=== PATIENT | male | born 1950 | race Two or more races ===

== ENCOUNTER 2024-04-05 13:15 | Observation (INO) | payer OTHER ==
[2024-04-05 13:20] VITALS: RESP 16; BMI 31.0
[2024-04-05 14:25] LABS: BASO % 0.5 % (0-2.0); EOS % 0.4 % (0-4.5); HEMATOCRIT 49.2 % (35.4-49); HEMOGLOBIN 16.4 GM/dL (11.7-16.9); LYMPH % 22.4 % (8-40); MCH 27.3 pg (25.7-33.7); MCHC 33.3 g/dl (32.0-35.9); MEAN CELL VOLUME 81.9 fl (80-96); MONO % 6.7 % (3.8-10.2); PLATELET COUNT 218 10^3/uL (134-434); RBC 6.01 M/mm3 (4.00-5.60); RDW 15.7 % (11.9-15.9); WHITE BLOOD COUNT 9.2 K/mm3 (4.0-10.0)
[2024-04-05 14:45] LABS: POTASSIUM 3.5 mmol/L (3.5-5.1)
[2024-04-05 14:46] LABS: CALCIUM 8.9 mg/dL (8.5-10.1)
[2024-04-05 14:47] LABS: ALBUMIN 3.4 g/dl (3.4-5.0); BLOOD UREA NITROGEN 19.8 mg/dL (7-18)
[2024-04-05 14:50] LABS: CREATININE 1.2 mg/dL (0.55-1.3)
[2024-04-05 14:52] LABS: BILIRUBIN,TOTAL 0.9 mg/dL (0.2-1); TOT PROT 6.5 g/dl (6.4-8.2)
[2024-04-05 15:41] LABS: HIV INTERPRETATION NEGATIVE (NEGATIVE)
[2024-04-05 19:17] VITALS: BP 103/62; PULSE 72; TEMP 98.5
[2024-04-05] MEDS ORDERED: ATORVASTATIN CA 20 MG TABLET (FP) PO SCH (22:00)
[2024-04-05] MEDS ORDERED: INSULIN ASPART SLIDING SCALE (NOVOLOG) 1 VIAL SQ SCH (22:00)
[2024-04-06] MEDS ORDERED: metFORMIN HCL 500 MG TABLET (FP) PO SCH (07:00)
[2024-04-06] MEDS ORDERED: ASPIRIN 81 MG CHEWABLE TABLETS PO SCH (10:00)
[2024-04-06] MEDS ORDERED: LOSARTAN POTASSIUM 50 MG TABLET PO SCH (10:00)
== END 2024-04-05 21:49 | disposition home or self-care (01) ==
LOC: JER 13:15 → JERBED 15:00
PROVIDERS: ADMIT Internal Medicine; ATTEND Internal Medicine
DX: R07.9 Chest pain, unspecified (principal); R06.02 Shortness of breath; I10 Essential (primary) hypertension; E11.9 Type 2 diabetes mellitus without complications; E78.5 Hyperlipidemia, unspecified; Z53.9 Procedure and treatment not carried out, unspecified reason
CPT/HCPCS: 36415; 71046-TC-FY; 80053; 84484; 85025; 86803; 87389; 93005; 93010; 99285-25; G0378

== ENCOUNTER 2024-07-27 18:24 | Observation (INO) | payer OTHER ==
[2024-07-27 18:31] VITALS: BMI 32.0
[2024-07-27] MEDS ORDERED: ACETAMINOPHEN INJECTION 100 ML ONE (19:33)
[2024-07-27] MEDS: ACETAMINOPHEN 1000 MG/100 ML BAG IVPB ONE (19:45)
[2024-07-27 19:57] LABS: BASO % 0.9 % (0-2.0); HEMATOCRIT 49.8 % (35.4-49); HEMOGLOBIN 16.4 GM/dL (11.7-16.9); LYMPH % 26.9 % (8-40); MCH 27.2 pg (25.7-33.7); MCHC 32.9 g/dl (32.0-35.9); MEAN CELL VOLUME 82.6 fl (80-96); MEAN PLT VOLUME 9.1 fl (7.5-11.1); MONO % 8.1 % (3.8-10.2); NEUT % 63.1 % (42.8-82.8); PLATELET COUNT 226 10^3/uL (134-434); RBC 6.03 M/mm3 (4.00-5.60); RDW 14.2 % (11.9-15.9); WHITE BLOOD COUNT 8.5 K/mm3 (4.0-10.0)
[2024-07-27 19:58] LABS: INR 0.88 (0.83-1.09); PROTHROMBIN TIME (PATIENT) 9.6 SEC (9.7-13.0)
[2024-07-27 20:01] LABS: ACTIVATED PTT 27.8 SECONDS (25.2-36.5)
[2024-07-27 20:09] LABS: POTASSIUM 3.5 mmol/L (3.5-5.1)
[2024-07-27 20:12] LABS: ALBUMIN 3.2 g/dl (3.4-5.0); BLOOD UREA NITROGEN 19.3 mg/dL (7-18); CALCIUM 8.7 mg/dL (8.5-10.1); MAGNESIUM 2.1 mg/dL (1.8-2.4)
[2024-07-27 20:15] LABS: CREATININE 1.6 mg/dL (0.55-1.3)
[2024-07-27 20:16] LABS: PHOSPHOROUS 4.1 mg/dL (2.5-4.9)
[2024-07-27 20:17] LABS: BILIRUBIN,TOTAL 0.4 mg/dL (0.2-1); TOT PROT 6.4 g/dl (6.4-8.2)
[2024-07-27 20:20] LABS: N-TERMINAL BNP 500.7 pg/ml (5-125)
[2024-07-27] MEDS: LACTATED RINGERS SOLUTION 1000 ML INFUS.BAG IV ONE (20:28)
[2024-07-27] MEDS ORDERED: ENOXAPARIN NA (PORCINE) 40 MG/0.4 ML DISP.SYRIN SQ ONE (22:31)
[2024-07-27] MEDS: POTASSIUM CHLORIDE TABS 20 MEQ TABLET.ER (FP) PO ONE (22:35)
[2024-07-27] MEDS: INSULIN ASPART SLIDING SCALE (NOVOLOG) 1 VIAL SQ SCH (22:36)
[2024-07-27] MEDS: ENOXAPARIN NA (PORCINE) 40 MG/0.4 ML DISP.SYRIN SQ SCH (22:36)
[2024-07-28] MEDS: SODIUM CHLORIDE 1,000 ML IV SCH (01:10)
[2024-07-28 08:08] LABS: HEMATOCRIT 46.3 % (35.4-49); HEMOGLOBIN 15.4 GM/dL (11.7-16.9); MCH 27.3 pg (25.7-33.7); MCHC 33.3 g/dl (32.0-35.9); MEAN CELL VOLUME 82.1 fl (80-96); PLATELET COUNT 208 10^3/uL (134-434); RBC 5.64 M/mm3 (4.00-5.60); RDW 14.2 % (11.9-15.9); WHITE BLOOD COUNT 5.2 K/mm3 (4.0-10.0)
[2024-07-28 08:26] LABS: POTASSIUM 4.2 mmol/L (3.5-5.1)
[2024-07-28 08:29] LABS: BLOOD UREA NITROGEN 17.4 mg/dL (7-18); CALCIUM 9.1 mg/dL (8.5-10.1); MAGNESIUM 2.1 mg/dL (1.8-2.4)
[2024-07-28 08:32] LABS: CREATININE 1.2 mg/dL (0.55-1.3)
[2024-07-28 08:33] LABS: PHOSPHOROUS 4.2 mg/dL (2.5-4.9)
[2024-07-28 10:50] VITALS: RESP 18
[2024-07-28 14:23] VITALS: BP 115/73; PULSE 63; TEMP 98.2
== END 2024-07-28 14:32 | disposition home or self-care (01) ==
LOC: JER 18:24 → JERBED 20:24 → J4S 07-28 00:24
PROVIDERS: ADMIT Internal Medicine; ATTEND Family Medicine
PROC: 3E033NZ Introduction of Analgesics, Hypnotics, Sedatives into Peripheral Vein, Percutaneous Approach (ICD-10-PCS; principal; 2024-07-27)
PROC: 3E0337Z Introduction of Electrolytic and Water Balance Substance into Peripheral Vein, Percutaneous Approach (ICD-10-PCS; 2024-07-27)
DX: N17.9 Acute kidney failure, unspecified (principal); E78.5 Hyperlipidemia, unspecified; I10 Essential (primary) hypertension; E11.9 Type 2 diabetes mellitus without complications; R07.9 Chest pain, unspecified; G89.29 Other chronic pain
CPT/HCPCS: 0241U-QW; 36415; 71045-TC-FY; 80048; 80053; 82550; 82962; 83036; 83735; 83880; 84100; 84484; 85025; 85027; 85610; 85730; 93005; 93010; 96361; 96374; 99285-25; G0378; J0131

== ENCOUNTER 2024-12-24 10:23 | Emergency (ER) | payer OTHER ==
[2024-12-24 10:49] VITALS: BP 122/77; PULSE 74; RESP 18; TEMP 97.9; BMI 32.5
[2024-12-24] MEDS ORDERED: ACETAMINOPHEN 500 MG TABLET (FP) ONE (12:14)
[2024-12-24] MEDS: ACETAMINOPHEN 500 MG TABLET (FP) PO ONE (12:15)
== END 2024-12-24 13:24 | disposition home or self-care (01) ==
LOC: JERFT 10:23
DX: M25.552 Pain in left hip (principal); M25.561 Pain in right knee; G89.18 Other acute postprocedural pain
CPT/HCPCS: 73502-TC-LT-FY; 73560-TC-RT-FY; 99284-25

== ENCOUNTER 2025-02-18 18:39 | Observation (INO) | payer OTHER ==
[2025-02-18 18:49] VITALS: BMI 32.9
[2025-02-18] MEDS ORDERED: ACETAMINOPHEN INJECTION 100 ML ONE (19:38)
[2025-02-18] MEDS: LACTATED RINGERS SOLUTION 1000 ML INFUS.BAG IV ONE (19:55)
[2025-02-18] MEDS: ACETAMINOPHEN 1000 MG/100 ML BAG IVPB ONE (19:55)
[2025-02-18 20:13] LABS: ABSOLUTE IMMATURE GRANULOCYTES 0.03 x10^3/uL (0.0-0.031); BASOPHILS # 0.04 x10^3/uL (0.01-0.08); EOSINOPHIL % 1.3 % (0.8-7.0); EOSINOPHILS # 0.10 x10^3/uL (0.04-0.54); MCHC 32.6 g/dl (32.3-36.5); MEAN CELL VOLUME 81.8 fl (79.0-92.2); MEAN PLT VOLUME 11.6 fl (9.4-12.4); MONOCYTE # 0.76 x10^3/uL (0.30-0.82); MONOCYTE % 9.8 % (5.3-12.2); RDW 13.4 % (12.2-16.6)
[2025-02-18 20:32] LABS: GLUCOSE,RANDOM 364.0 mg/dL (74-106); TOT PROT 6.7 g/dl (6.4-8.2)
[2025-02-18 20:33] LABS: CO2 23.0 mmol/L (21-32)
[2025-02-18 20:35] LABS: ALK PHOS 129.0 U/L (40-150)
[2025-02-18 20:37] LABS: SGPT/ALT 23.0 U/L (0-55)
[2025-02-18 20:38] LABS: CREATININE 1.29 mg/dL (0.55-1.3); SGOT/AST 20.0 U/L (5-34)
[2025-02-18 21:01] LABS: HCV DIAGNOSTIC IN-HOUSE W/RFLX NON-REACTIVE (NONREACTIVE); HIV INTERPRETATION NEGATIVE (NEGATIVE)
[2025-02-18] MEDS ORDERED: METOCLOPRAMIDE HCL INJECTION 10 MG/2 ML VIAL ONE (21:58)
[2025-02-18 22:58] LABS: N-TERMINAL BNP 105.7 pg/ml (5-125)
[2025-02-18] MEDS ORDERED: ALBUTEROL SO4 HFA INHALER IH PRN (23:25)
[2025-02-19] MEDS: INSULIN (NOVOLOG) ASPART 100 UNITS/ML 10ML VIAL SQ ONE (02:05)
[2025-02-19] MEDS ORDERED: ACETAMINOPHEN 325 MG TABLET (FP) PO PRN (05:21)
[2025-02-19] MEDS: INSULIN ASPART SLIDING SCALE (NOVOLOG) 1 VIAL SQ SCH (06:01)
[2025-02-19 06:41] LABS: ABSOLUTE IMMATURE GRANULOCYTES 0.03 x10^3/uL (0.0-0.031); BASOPHILS # 0.06 x10^3/uL (0.01-0.08); EOSINOPHIL % 2.1 % (0.8-7.0); EOSINOPHILS # 0.14 x10^3/uL (0.04-0.54); MCHC 32.2 g/dl (32.3-36.5); MEAN CELL VOLUME 82.5 fl (79.0-92.2); MEAN PLT VOLUME 11.1 fl (9.4-12.4); MONOCYTE # 0.63 x10^3/uL (0.30-0.82); MONOCYTE % 9.4 % (5.3-12.2); RDW 13.5 % (12.2-16.6)
[2025-02-19 07:10] LABS: GLUCOSE,RANDOM 71.0 mg/dL (74-106)
[2025-02-19 07:11] LABS: TOT PROT 6.1 g/dl (6.4-8.2)
[2025-02-19 07:12] LABS: CO2 30.0 mmol/L (21-32)
[2025-02-19 07:14] LABS: ALK PHOS 103.0 U/L (40-150)
[2025-02-19 07:16] LABS: SGOT/AST 16.0 U/L (5-34); SGPT/ALT 18.0 U/L (0-55)
[2025-02-19 07:17] LABS: CREATININE 1.21 mg/dL (0.55-1.3)
[2025-02-19] MEDS: ENOXAPARIN NA (PORCINE) 40 MG/0.4 ML DISP.SYRIN SQ SCH (10:22)
[2025-02-19] MEDS: TAMSULOSIN HCL 0.4 MG CAP PO SCH (10:22)
[2025-02-19] MEDS: LOSARTAN 50MG/HCTZ 12.5MG 1 TAB PO SCH (12:00)
[2025-02-19] MEDS: FINASTERIDE 5 MG TABLET (FP) PO SCH (12:45)
[2025-02-19] MEDS: EMPAGLIFLOZIN (JARDIANCE) 25 MG TABLET PO SCH (12:45)
[2025-02-19] MEDS: FLUTICASONE/UMECLIDIN/VILANTER(200-62.5-25 TRELEGY ELLIPTA) INAHLER IH SCH (12:45)
[2025-02-19 15:22] LABS: URINE APPEARANCE CLEAR; URINE BILIRUBIN NEGATIVE (NEGATIVE); URINE COLOR YELLOW; URINE GLUCOSE (UA) 3+ (NEGATIVE); URINE KETONE TRACE (NEGATIVE); URINE LEUK ESTERASE NEGATIVE (NEGATIVE); URINE NITRITE NEGATIVE (NEGATIVE); URINE PROTEIN NEGATIVE (NEGATIVE); URINE UROBILINOGEN 2.0 mg/dL (0.2-1.0)
[2025-02-19] MEDS: ATORVASTATIN CA 40 MG TABLET (FP) PO SCH (21:06)
[2025-02-19] MEDS: INSULIN GLARGINE (LANTUS) 100 UNITS/ML UNITS SQ SCH (21:06)
[2025-02-20 04:04] VITALS: RESP 25
[2025-02-20 06:17] VITALS: TEMP 98.2
[2025-02-20 07:00] LABS: ABSOLUTE IMMATURE GRANULOCYTES 0.03 x10^3/uL (0.0-0.031); BASOPHILS # 0.06 x10^3/uL (0.01-0.08); EOSINOPHIL % 1.9 % (0.8-7.0); EOSINOPHILS # 0.13 x10^3/uL (0.04-0.54); MCHC 32.2 g/dl (32.3-36.5); MEAN CELL VOLUME 83.0 fl (79.0-92.2); MEAN PLT VOLUME 11.4 fl (9.4-12.4); MONOCYTE # 0.61 x10^3/uL (0.30-0.82); MONOCYTE % 9.1 % (5.3-12.2); RDW 13.5 % (12.2-16.6)
[2025-02-20 07:24] LABS: GLUCOSE,RANDOM 117.0 mg/dL (74-106)
[2025-02-20 07:25] LABS: TOT PROT 6.5 g/dl (6.4-8.2)
[2025-02-20 07:26] LABS: CO2 30.0 mmol/L (21-32)
[2025-02-20 07:28] LABS: ALK PHOS 105.0 U/L (40-150)
[2025-02-20 07:30] LABS: CREATININE 1.09 mg/dL (0.55-1.3); SGOT/AST 16.0 U/L (5-34); SGPT/ALT 17.0 U/L (0-55)
[2025-02-20 12:03] VITALS: BP 143/74; PULSE 66
== END 2025-02-20 12:40 | disposition home or self-care (01) ==
LOC: JER 18:39 → JERBED 19:24 → INTOOBSV 19:24 → UNDOADMOB 19:24 → JERBED 23:23 → J2W 23:34 → JERBED 23:34 → INTOOBSV 02-19 01:28 → OBSVTOIN 02-19 01:28 → J2W 02-19 13:27 → JERBED 02-19 13:27
PROVIDERS: ADMIT Family Medicine; ATTEND Family Medicine
PROC: 3E033NZ Introduction of Analgesics, Hypnotics, Sedatives into Peripheral Vein, Percutaneous Approach (ICD-10-PCS; principal; 2025-02-19)
PROC: 3E013VG Introduction of Insulin into Subcutaneous Tissue, Percutaneous Approach (ICD-10-PCS; 2025-02-19)
PROC: 3E0337Z Introduction of Electrolytic and Water Balance Substance into Peripheral Vein, Percutaneous Approach (ICD-10-PCS; 2025-02-19)
DX: I47.10 Supraventricular tachycardia, unspecified (principal); I10 Essential (primary) hypertension; E78.5 Hyperlipidemia, unspecified; J44.9 Chronic obstructive pulmonary disease, unspecified; E11.9 Type 2 diabetes mellitus without complications; N40.0 Benign prostatic hyperplasia without lower urinary tract symptoms; M19.90 Unspecified osteoarthritis, unspecified site
CPT/HCPCS: 36415; 71045-TC-FY; 80053; 81003; 82962; 83036; 83735; 83880; 84100; 84443; 84484; 85025; 86803; 87389; 93005; 93010; 93306-TC; 96361; 96372; 96374; 99285-25; G0378